=== PATIENT | female | born 1955 | race Caucasian/White ===

== ENCOUNTER 2016-10-17 10:23 | Inpatient (IN) ==
[2016-10-17] MEDS ORDERED: SOLU-MEDROL ONE (10:39)
[2016-10-17] MEDS ORDERED: SOLU-MEDROL IV ONE (10:47)
[2016-10-17 10:49] LABS: BLOOD TYPE ARTERIAL; DRAW SITE R BRACHIAL; METHB 1.3 % (0.0-1.5); PCO2(98.6) 39 mmHg (35-45); PO2(98.6) 60 mmHg (60-100); SAMPLE BLOOD; SAO2 95.5 % (95.0-100.0); THB 12.6 g/dL (11.5-17.4); pH(98.6) 7.45 (7.35-7.45)
[2016-10-17] MEDS ORDERED: DUONEB (A & A) INH ONE (10:49)
[2016-10-17 10:56] LABS: ALLEN TEST NO; MODALITY CANNULA
[2016-10-17 10:59] LABS: MANUAL DIFF NEEDED? NO
[2016-10-17 11:05] LABS: BASO% 0.2 % (0.0-0.8); EOS# 0.11 X1000 (0.0-0.7); EOS% 0.6 % (0.0-10.0); HEMATOCRIT 38.5 % (37.0-47.0); HEMOGLOBIN 13.3 g/dL (12.0-16.0); IMM GRAN# 0.07 X1000 (0.0-0.04); IMM GRAN% 0.4 % (0.0-0.5); LYMPH% 11.1 % (20.5-51.1); MCH 30.4 PG (27-31); MCHC 34.5 g/dL (33-37); MCV 87.9 FL (81-99); MONO# 1.25 X1000 (0.11-0.59); MONO% 6.3 % (1.7-9.3); MPV 9.9 FL (7.4-10.4); NEUT% 81.4 % (42.2-75.2); PLT 277 X1000 (130-400); RBC 4.38 XMIL (4.2-5.4)
--- NOTE | 2016-10-17 11:14 | EKG Report ---
Test Performed on : 10/17/2016 10:33:34 AM Test Reason : SOB Blood Pressure : / mmHG Vent. Rate : 113 BPM Atrial Rate : 113 BPM P-R Int : 134 ms QRS Dur : 144 ms QT Int : 370 ms P-R-T Axes : 072 -48 069 degrees QTc Int : 507 ms Sinus tachycardia. with premature atrial complexes. with aberrant conduction. Possible Left atrial enlargement Left axis deviation Left bundle branch block Abnormal ECG When compared with ECG of 01-MAR-2016 16:35, aberrant conduction. is now present QRS axis shifted left T wave inversion no longer evident in Inferior leads Unconfirmed Result
[2016-10-17 11:18] LABS: AGAP 14; ALBUMIN 4.4 g/dL (3.5-5.0); ALKALINE PHOSPHATASE 119 U/L (32-104); BUN 12 mg/dL (8-22); CALCIUM 9.6 mg/dL (8.8-10.2); CHLORIDE 103 mmol/L (98-107); CK PROFILE 80 U/L (24-173); COSMO 282; GOT 15 U/L (10-30); GPT 9 U/L (10-36); MAGNESIUM 1.7 mg/dL (1.5-2.7); POTASSIUM 3.7 mmol/L (3.5-5.1); SODIUM 141 mmol/L (136-145); TCO2 24 mmol/L (25-35); TOTAL PROTEIN 7.2 g/dL (6.3-8.3)
[2016-10-17 11:34] LABS: INR 0.97 (0.86-1.15); PROTIME 13.2 Seconds (12.1-15.5)
[2016-10-17 11:35] LABS: PTT PL 33.5 Seconds (22.6-43.9)
--- NOTE | 2016-10-17 11:47 | Diag Imaging Result Doc PS360 ---
EXAM: CHEST-2 VIEWS INDICATION: CP TECHNIQUE: 2 views COMPARISON: 03/01/2016 FINDINGS: There is a new opacity in the right lower lung zone that probably represents an infiltrate. However, it is vaguely nodular. At least a follow-up chest radiograph or CT is recommended. The lungs are grossly clear, otherwise. There is no discrete pleural fluid collection or pneumothorax. The cardiomediastinal silhouette and central vasculature are grossly unremarkable. IMPRESSION: New vaguely nodular opacity in the right lower lung zone as described. Please see above discussion. Electronically signed by Semaj Ramos 10/17/2016 11:45 AM
[2016-10-17] MEDS ORDERED: NS 1,000 ML IV ONE (11:58)
--- NOTE | 2016-10-17 12:04 | ED EKG INTERP ---
This chart was entered by Patricia Dunbar Scribe, acting as scribe for Trung Nunez MD. EKG Interpretation - EKG Time of EKG reading by physician:: 10:45 EKG Read and Signed by:: Trung Nunez EKG Interpretation (*Must complete 3 of following elements*): Abnormal Rate: 113 Rhythm: sinus tachycardia with premature atrial complexes w/ aberrant conduction [place]: left (left axis deviation) QRS: LBB (left bundle branch block) Prior EKG Comparison: unchanged from prior Comments: abnormal ECG This chart was documented by the indicated scribe, (Patricia Dunbar Scribe) and accurately reflects the services I performed and decisions made by me, Trung Nunez MD, as attested by the provider's signature.
[2016-10-17] MEDS: PROZAC PO SCH ×2 (12:15→12:53)
[2016-10-17] MEDS ORDERED: PREDNISONE PO SCH (12:15)
[2016-10-17] MEDS: LOVENOX SUBQ SCH (12:15)
[2016-10-17] MEDS: ALTACE PO SCH ×2 (12:15→12:54)
[2016-10-17] MEDS: ROCEPHIN 1 GM/NS 1 GM/50 ML IVPB IV SCH (12:38)
[2016-10-17] MEDS: AVAPRO PO SCH ×2 (12:45→12:54)
[2016-10-17] MEDS: LEVAQUIN 750 MG/D5W 750 MG/150 ML IVPB IV SCH (13:10)
[2016-10-17] MEDS: DUONEB (A & A) INH SCH ×3 (17:08→22:57)
[2016-10-17] MEDS: ZOCOR PO SCH (20:51)
[2016-10-17] MEDS: COREG PO SCH (20:51)
[2016-10-18] MEDS: DUONEB (A & A) INH SCH ×6 (04:06→23:27)
[2016-10-18] MEDS: ALTACE PO SCH (09:05)
[2016-10-18] MEDS: AVAPRO PO SCH (09:06)
[2016-10-18] MEDS: PROZAC PO SCH (09:06)
[2016-10-18] MEDS: COREG PO SCH ×2 (09:06→21:06)
[2016-10-18] MEDS: ROCEPHIN 1 GM/NS 1 GM/50 ML IVPB IV SCH (12:25)
[2016-10-18] MEDS: LOVENOX SUBQ SCH (12:25)
[2016-10-18] MEDS: LEVAQUIN 750 MG/D5W 750 MG/150 ML IVPB IV SCH (13:37)
--- NOTE | 2016-10-18 19:48 | Diag Imaging Result Doc PS360 ---
EXAM: CHEST-2 VIEWS INDICATION: PNA/COPD TECHNIQUE: 2 views COMPARISON: 10/17/2016 FINDINGS: The vaguely nodular infiltrate at the right lower lung zone appears slightly less prominent than the previous study. No new consolidation is identified. Cardiac silhouette is stable. IMPRESSION: Improvement in mild focal consolidation on the right. Electronically signed by Semaj Ramos 10/18/2016 7:45 PM
[2016-10-18] MEDS: ZOCOR PO SCH (21:06)
[2016-10-19] MEDS: DUONEB (A & A) INH SCH ×4 (03:15→15:48)
[2016-10-19 05:46] LABS: MANUAL DIFF NEEDED? NO
[2016-10-19 05:57] LABS: BASO% 0.1 % (0.0-0.8); HEMATOCRIT 33.2 % (37.0-47.0); HEMOGLOBIN 11.1 g/dL (12.0-16.0); IMM GRAN# 0.04 X1000 (0.0-0.04); IMM GRAN% 0.3 % (0.0-0.5); LYMPH# 3.13 X1000 (1.2-3.4); LYMPH% 26.3 % (20.5-51.1); MCH 30.2 PG (27-31); MCHC 33.4 g/dL (33-37); MCV 90.5 FL (81-99); MONO# 0.76 X1000 (0.11-0.59); MONO% 6.4 % (1.7-9.3); MPV 9.9 FL (7.4-10.4); NEUT% 66.9 % (42.2-75.2); PLT 225 X1000 (130-400); RBC 3.67 XMIL (4.2-5.4)
[2016-10-19 05:58] VITALS: BP 160/68
[2016-10-19] MEDS: ALTACE PO SCH (08:29)
[2016-10-19] MEDS: PROZAC PO SCH (08:29)
[2016-10-19] MEDS: COREG PO SCH (08:29)
[2016-10-19] MEDS: AVAPRO PO SCH (08:30)
[2016-10-19] MEDS: ROCEPHIN 1 GM/NS 1 GM/50 ML IVPB IV SCH (12:52)
[2016-10-19] MEDS: LOVENOX SUBQ SCH (12:52)
[2016-10-19] MEDS: LEVAQUIN 750 MG/D5W 750 MG/150 ML IVPB IV SCH (13:31)
--- NOTE | 2016-11-04 23:25 | PROVIDER DOCUMENTATION ---
This chart was entered by Patricia Dunbar Scribe, acting as scribe for Trung Nunez MD. HPI-Respiratory General - General Chief Complaint: Shortness of Breath Stated Complaint: SOB/COLD SX Time Seen by Provider: 10/17/16 10:43 Source: patient Allergies/Adverse Reactions: Patient Allergies Allergy/AdvReac Type Severity Reaction Status Date / Time erythromycin base Allergy Intermediate RASH Verified 10/17/16 10:29 Corticosteroids AdvReac Intermediate resp Verified 10/17/16 10:29 (Glucocorticoids) distress promethazine HCl * AdvReac Mild VOMITING Verified 10/17/16 10:29 [From Phenergan] Home Medications: Home Medication List Medication Instructions Recorded Confirmed Last Taken Type Albuterol Sulfate [Proair Hfa] 8.5 gm IH 4XDAY PRN PRN 05/15/13 10/17/16 History Ramipril 10 mg PO DAILY 05/15/13 10/17/16 12/29/14 History Simvastatin 40 mg PO HS 05/15/13 10/17/16 12/29/14 History Sucralfate 1 gm PO 4XDAY 05/15/13 10/17/16 12/29/14 History Fluoxetine [Prozac] 20 mg PO DAILY 07/31/14 10/17/16 12/29/14 History Albuterol 2.5MG/Ipratrop 0.5MG 3 ml INH RTQ4H #60 neb 08/06/14 10/17/16 Rx [Duoneb (A & A)] Carvedilol [Coreg] 25 mg PO BID #60 tablet 08/06/14 10/17/16 12/29/14 Rx Prednisone 10 mg PO DAILY #20 tablet 08/06/14 10/17/16 12/29/14 Rx Albuterol Sulfate Inhaler 2 puff INH Q6H PRN PRN #1 inhaler 01/06/16 10/17/16 Unknown Rx [Ventolin Hfa] Inhaler, Assist Devices [Space 1 each MC DIRECTED #1 spacer 01/06/16 Unknown Rx Chamber Plus] Guaifenesin/Codeine [Robitussin-AC] 10 ml PO Q4H PRN PRN #4 oz 03/01/16 Unknown Rx Levofloxacin [Levaquin] 750 mg PO DAILY #3 tablet 10/19/16 Unknown Rx - History of Present Illness-Resp Nature of Presenting Problem: 61 year old female presents to the ER with complaint of SOB since last pm. Pt is currently on home oxygen. Pt is currently on antibiotics. Onset/Duration: reports: last night Timing: reports: still present Associated Symptoms: reports: shortness of breath Review of Systems - Adult - REVIEW OF SYSTEMS - ADULT Constitutional: denies: chills, fever Eyes: reports: no symptoms reported Ears, Nose, Mouth & Throat: reports: no symptoms reported Cardiovascular: reports: no symptoms reported Respiratory: reports: see HPI, shortness of breath Gastrointestinal: reports: no symptoms reported Genitourinary: reports: no symptoms reported Musculoskeletal: reports: no symptoms reported Integumentary: reports: no symptoms reported Neurological: reports: no symptoms reported Psychiatric: reports: no symptoms reported Endocrine: reports: no symptoms reported Hematologic/Lymphatic: reports: no symptoms reported Allergic/Immunologic: reports: no symptoms reported All Other Systems: Reviewed and Negative Past History - Adult - PAST MEDICAL HISTORY-ADULT Review of Records: reports: Nursing Assessment Review, Medications Reviewed Cardiovascular: reports: CHF, HTN, hyperlipidemia, [place] Respiratory: reports: COPD, pneumonia, sleep apnea Gastrointestinal: reports: cholelithiasis Musculoskeletal: reports: arthritis, other (gout) Neurological: reports: denies history Psychiatric: reports: denies history Endocrine/Immune: reports: denies history Other Conditions: reports: denies history - PRIOR SURGERIES/PROCEDURES Surgical/Procedure History: reports: appendectomy, BTL, - IMMUNIZATION STATUS Childhood Immunizations: See Nurse Assessment Flu Vaccine: See Nurse Assessment - FAMILY HISTORY Family History: reviewed, not pertinent Physical Exam-General - CONSTITUTIONAL General Appearance: alert, no apparent distress - EYES Eyes: PERRL/EOMI, pink conjunctivae - HEAD, EARS, NOSE, MOUTH & THROAT HENMT: normocephalic/atraumatic, moist mucous membranes - NECK Neck: non-tender, full range of motion - RESPIRATORY Respiratory: decreased breath sounds, crackles - CARDIOVASCULAR Cardiovascular: normal peripheral pulses, regular rate, rhythm - MUSCULOSKELETAL Back Exam: no CVA tenderness, no vertebral tenderness Extremity: non-tender, normal inspection - SKIN Integumentary: normal color, warm/dry - NEUROLOGIC Neurologic: grossly normal, no motor/sensory deficits - PSYCHIATRIC Psych/Mental Status: normal mood/affect, normal thought content, normal thought process, oriented x 3 Progress - PLAN OF CARE/RESULTS Progress/Plan/Lab Results: Orders Category Date Time Status Admit - [facility] Routine AdmDCTranf 10/17/16 11:58 Ordered Admit - [facility] Routine AdmDCTranf 10/17/16 12:09 Ordered Activity - Up Ad Catherine ORDERED Care 10/17/16 11:58 Active Activity - Up with Assistance ORDERED Care 10/17/16 12:09 Completed Cardiac Monitoring DIRECTED Care 10/17/16 10:39 Completed Elevate Head of Bed DIRECTED Care 10/17/16 12:09 Active Encourage Fluids DIRECTED Care 10/17/16 12:09 Active Intake and Output-Strict Q 8-HR ASSESS Care 10/17/16 12:09 Completed Nursing- Assist w/ IS as order ORDERED Care 10/17/16 12:10 Active Saline Loc NOW Care 10/17/16 10:39 Completed Turn, Cough and Deep Breathe Q2HR Care 10/17/16 12:09 Active Vital Signs Order Q 4-HR ASSESS Care 10/17/16 11:58 Completed Vital Signs Order Q 8-HR ASSESS Care 10/17/16 12:09 Active Z-Document. for Tele Applied ORDERED Care 10/17/16 12:00 Completed Heart Healthy Diet Diet 10/17/16 12:01 Completed Heart Healthy Diet Diet 10/17/16 12:11 Completed CHEST-2 VIEWS [RAD] Stat Exams 10/17/16 10:39 Completed ABG [RESP] Routine Lab 10/17/16 10:20 Completed BLOOD CULTURE [BLDCUL] Stat Lab 10/17/16 12:30 Completed CBC WITH ELECTRONIC DIFF [HEME] Stat Lab 10/17/16 10:35 Completed CK PROFILE [SP CHEM] Stat Lab 10/17/16 10:35 Completed COMPREHENSIVE METABOLIC PANEL [CHEM] Stat Lab 10/17/16 10:35 Completed D-DIMER PL [COAG] Stat Lab 10/17/16 10:35 Completed MAGNESIUM [CHEM] Stat Lab 10/17/16 10:35 Completed PRO B-NATRIURETIC PEPTIDE Stat Lab 10/17/16 10:35 Completed PROTIME WITH INR PL [COAG] Stat Lab 10/17/16 10:[address] [COAG] Stat Lab 10/17/16 10:35 Completed SPUTUM CULTURE WITH GRAM STAIN [RM] Routine Lab 10/17/16 16:25 Completed TROPONIN T Stat Lab 10/17/16 10:35 Completed 0.9% Sodium Chloride Inj [Ns] 1,000 ml Med 10/17/16 11:58 Discontinued IV 50 mls/hr Albuterol 2.5MG/Ipratrop 0.5MG [Duoneb (A & A)] Med 10/17/16 10:49 Discontinued 3 ml INH NOW ONE Albuterol 2.5MG/Ipratrop 0.5MG [Duoneb (A & A)] Med 10/17/16 15:30 Discontinued 3 ml INH RTQ4H Carvedilol [Coreg] Med 10/17/16 21:00 Discontinued 25 mg PO BID CefTRIAXONE 1 GM/NS [Rocephin 1 gm/Ns] Med 10/17/16 12:15 Discontinued 1 gm in 50 ml IV Q24H Enoxaparin [Lovenox] Med 10/17/16 12:15 Discontinued 30 mg SUBQ Q24H Fluoxetine [Prozac] Med 10/17/16 12:15 Discontinued 20 mg PO QAM Irbesartan [Avapro] Med 10/17/16 12:45 Discontinued 300 mg PO QAM Levofloxacin 750 mg/D5w [Levaquin 750 mg/D5w] Med 10/17/16 13:00 Discontinued 750 mg in 150 ml IV Q24H Methylprednisolone Sod Succ [Solu-Medrol] Med 10/17/16 10:39 Discontinued 125 mg .ROUTE .STK-MED ONE Methylprednisolone Sod Succ [Solu-Medrol] Med 10/17/16 10:47 Discontinued 125 mg IV NOW ONE RAMIpril [Altace] Med 10/17/16 12:15 Discontinued 10 mg PO QAM SIMVAstatin [Zocor] Med 10/17/16 21:00 Discontinued 40 mg PO QHS Aerosol Treatments Routine Ot 10/17/16 12:01 Completed Aerosol Treatments Stat Oth 10/17/16 10:50 Completed Aerosol Treatments Stat Ot 10/17/16 12:01 Completed Incentive Spirometer Routine Ot 10/17/16 12:09 Completed Oxygen Device Routine Ot 10/17/16 12:00 Completed Oxygen Device Routine Ot 10/17/16 12:09 Completed Pulse Oximetry Routine Ot 10/17/16 12:09 Completed EKG [EKG] Stat Ther 10/17/16 10:39 Draft Transfer/Admit Order [TRANSFER] Routine Transfer 10/17/16 11:58 Completed Result Diagrams: 10/19/16 05:25 10/17/16 10:35 - XRAY 1 XRAY Study: Chest Impression: Abnormal XRAY Interpretation: COPD/pnemonia Per Dr. Nunez Departure - Departure Date of Disposition Decision: 10/17/16 Time of Disposition Decision: 12:15 DIAGNOSIS: COPD exacerbation Pneumonia Qualifiers: Pneumonia type: due to unspecified organism Laterality: right Lung location: lower lobe of lung Qualified Code(s): J18.1 - Lobar pneumonia, unspecified organism Disposition: ADMITTED INPATIENT 09 Certified Medical Emergency: Emergent Condition: Stable - Critical Care Note This patient required my direct & personal management of CC.: No Attestation - Physician/ PAM Attestation The physician spent face to face time with patient:: Yes Advanced Practice Provider documentation review:: Supervising physician onsite and consulted in the evaluation and care of this patient. The physician did have a face to face encounter with the patient. This chart was documented by the indicated scribe, (Patricia Dunbar, Scribliza) and accurately reflects the services I performed and decisions made by me, Trung Nunez MD, as attested by the provider's signature.
--- NOTE | 2016-11-06 12:09 | HISTORY AND PHYSICAL ---
HISTORY OF PRESENT ILLNESS: The patient is an office patient of [employer] that I am following primarily for hypertension, dyslipidemia, and COPD with history of continued smoking. This lady presented to the emergency department on the day of admission complaining of shortness of breath since the previous evening. She takes oxygen at home. Has a nebulizer at home and is currently taking antibiotics. These symptoms began the previous evening and just primarily shortness of breath, some cough, more work of breathing. In the ER, she was evaluated. Patient was on Levaquin and she had the following data. When she got there, she was given several treatments of albuterol after her preliminary evaluation. Treated with on 1 g of ceftriaxone, 30 mg of Lovenox. Her chest x-ray was COPD with possible pneumonic infiltrate in the right lung. She had a normal chem-7. Her CO2 was 24. Her CBC showed hematocrit was 33.2, white count was 11,100. PATIENT HISTORY: She has had a previous history of hypertension, dyslipidemia, ischemic heart disease with an [place], CHF, COPD, sleep apnea, pneumonia, cholelithiasis. She has had gouty arthritis. She has been intubated on several occasions because of exacerbations of her lungs. ALLERGIC: To erythromycin. Thinks she gets in respiratory distress when she takes corticosteroids, but I think it is the other way around. She needs to take corticosteroids when she gets in respiratory distress, and she vomits when she gets promethazine, and again she could be vomiting in spite of the promethazine. MEDICATIONS: Albuterol 4 times a day, ramipril 10 daily, simvastatin 40 daily, 1 g sucralfate 4 times a day, Prozac 20 daily, carvedilol 25 p.o. b.i.d., prednisone 10 daily, 2 puffs albuterol rescue inhaler p.r.n. REVIEW OF SYSTEMS: Generally: She denies chills, fever or significant weight gain or weight loss. Eyes: No history of conjunctivitis, change in vision or visual lorenzo. Ears Nose and Throat: No rhinitis, sinusitis or otitis. Cardiovascular: No chest pain, palpitations. She has some trace edema. No PND or orthopnea. No claudication. Respiratory: Chronic shortness of breath. Persistently smokes. Short of breath with minimal activity. Gastrointestinal: No nausea, vomiting, diarrhea, or constipation. Genitourinary: No polyuria, hematuria, dysuria. Musculoskeletal: No chest wall problems or skeletal muscle problem. Skin: Clear. Neurologic: No focal deficits. No TIA symptoms. Psychiatric: Negative for anxiety or depression, hallucinations or schizophrenia. Endocrine: No polyuria, polydipsia, or polyphagia. Hematological: No bruise. No bleeding. Allergic: No lymphadenopathy at the time of admission. PHYSICAL EXAMINATION: HEENT: Head was normocephalic. Eyes were PERRLA. EOMs intact. SC clear. Nares patent. NECK: Supple. Bounding carotids without thyromegaly or jugular venous distention. CHEST: Increased AP diameter, diminished breath sounds. CARDIOVASCULAR: Regular rhythm and rate. S1-S2 were normal. ABDOMEN: Somewhat protuberant. No hepatosplenomegaly. No CVA tenderness. EXTREMITIES: Negative for clubbing, cyanosis, or edema. Trace edema. SKIN: Generally clear. ADMITTING DIAGNOSES: 1. Chronic obstructive pulmonary disease. 2. History of ischemic heart disease. 3. Hypertension. 4. Dyslipidemia. 5. Acute exacerbation of chronic obstructive pulmonary disease versus pneumonia. She was cultured and hospitalized for treatment and further evaluation. cc: Trung Nunez MD
== END 2016-10-19 18:59 | disposition home or self-care (01) ==
LOC: P.ED 10:23 → P.MEDSURG 10:23 → OBSVTOIN 12:59
PROVIDERS: ADMIT Internal Medicine; ATTEND Internal Medicine

== ENCOUNTER 2019-05-20 16:29 | Inpatient (IN) ==
[2019-05-20] MEDS ORDERED: SOLU-MEDROL IV ONE (17:12)
--- NOTE | 2019-05-20 18:09 | Diag Imaging Result Doc PS360 ---
EXAM: CHEST-PORTABLE HISTORY: cough TECHNIQUE: Single view COMPARISON: 12/01/2018 FINDINGS: The lungs are well expanded. The heart is mildly enlarged. The vessels are not distended. No consolidation. No effusion identified. IMPRESSION: No pneumonia. Electronically signed by Elian Pepper 05/20/2019 6:07 PM
[2019-05-20 18:10] LABS: CHLORIDE 101 mmol/L (98-107); POTASSIUM 3.2 mmol/L (3.5-5.1); SODIUM 145 mmol/L (136-145)
[2019-05-20 18:15] LABS: AGAP 13; COSMO 288
[2019-05-20 18:16] LABS: ALKALINE PHOSPHATASE 95 U/L (32-104); BUN 10 mg/dL (8-22); CREATININE 0.6 mg/dL (0.5-0.9); ESTIMATED GFR > 60; GLUCOSE 99 mg/dL (70-104); GOT 11 U/L (10-30); GPT 7 U/L (10-36); TCO2 30 mmol/L (25-35); TOTAL PROTEIN 6.2 g/dL (6.3-8.3)
[2019-05-20 18:20] LABS: BASO# 0.02 X1000 (0.0-0.2); BASO% 0.2 % (0.0-0.8); EOS% 1.1 % (0.0-10.0); HEMATOCRIT 33.6 % (37.0-47.0); HEMOGLOBIN 10.6 g/dL (12.0-16.0); IMM GRAN# 0.03 X1000 (0.0-0.04); IMM GRAN% 0.3 % (0.0-0.5); LYMPH# 2.42 X1000 (1.2-3.4); LYMPH% 25.7 % (20.5-51.1); MCH 28.6 PG (27-31); MCHC 31.5 g/dL (33-37); MCV 90.8 FL (81-99); MONO# 1.09 X1000 (0.11-0.59); MONO% 11.6 % (1.7-9.3); MPV 10.6 FL (7.4-10.4); NEUT# 5.75 X1000 (1.4-6.5); NEUT% 61.1 % (42.2-75.2); PLT 253 X1000 (130-400); RDW 13.8 % (11.5-14.5); WBC 9.41 X1000 (4.8-10.8)
[2019-05-20] MEDS ORDERED: DUONEB (A & A) INH ONE (18:29)
[2019-05-20] MEDS ORDERED: PULMICORT INH ONE (18:30)
[2019-05-20] MEDS ORDERED: ROCEPHIN 1 GM in NS 50 ML IV ONE (18:32)
--- NOTE | 2019-05-20 19:02 | PROVIDER DOCUMENTATION ---
This chart was entered by Zainab Martino Scribe, acting as scribe for Emmy Villanueva MD. HPI-Respiratory General - General Source: patient - History of Present Illness-Resp Quality of Pain: reports: tightness Severity in ED: reports: mild Onset/Duration: reports: gradual, 24 hours ago Timing: reports: still present, constant, getting worse Context: denies: recent foreign travel Current Respiratory Medication Therapy: Initiated A/A nebulizer, Initiated steroid inhaler Modifying Factors: improves with: oxygen. worse with: exertion Associated Symptoms: reports: chest pain/soreness, hurts to breathe, shortness of breath. denies: fever/chills Similar Symptoms Previously?: Yes Recently seen or treated by another doctor?: Yes (Wednesday at clinic) <Emmy Villanueva - Last Filed: 05/20/19 19:01> <Shadi Gamez - Last Filed: 05/20/19 19:30> - General Chief Complaint: N/V/D Stated Complaint: LIGHT HEADED, HEAVINESS IN CHEST Time Seen by Provider: 05/20/19 16:47 Allergies/Adverse Reactions: Patient Allergies Allergy/AdvReac Type Severity Reaction Status Date / Time erythromycin base Allergy Intermediate RASH Verified 05/20/19 17:03 Corticosteroids AdvReac Intermediate RASH Verified 05/20/19 17:38 (Glucocorticoids) promethazine HCl * AdvReac Mild VOMITING Verified 05/20/19 17:03 [From Phenergan] Home Medications: Home Medication List Medication Instructions Recorded Confirmed Last Taken Type Fluoxetine [Prozac] 20 mg PO DAILY 07/31/14 05/20/19 12/29/14 History Carvedilol [Coreg] 25 mg PO BID #60 tablet 08/06/14 05/20/19 12/29/14 Rx Albuterol 2.5MG/Ipratrop 0.5MG 1 inh PO Q4-6H PRN PRN 05/11/17 05/20/19 Unknown History [Duoneb (A & A)] Cyclobenzaprine HCl 1 tab PO TID PRN 05/11/17 12/01/18 Unknown History Montelukast [Singulair] 10 mg PO DAILY 05/11/17 05/20/19 Unknown History Sucralfate [Carafate] 1 gm PO 4XDAY 11/20/17 05/20/19 Unknown History Sacubitril/Valsartan [Entresto 24 40 mg PO BID 07/31/18 05/20/19 Unknown History mg-26 mg Tablet] Furosemide [Lasix] 20 mg PO DAILY PRN PRN #15 tab 08/01/18 05/20/19 Unknown Rx Simvastatin [Zocor] 1 tab PO HS 12/01/18 05/20/19 Unknown History Aspirin [Aspir-Low] 81 mg PO DAILY 05/20/19 05/20/19 Unknown History Budesonide/Formoterol Inhaler 1 puff INH BID 05/20/19 05/20/19 Unknown History [Symbicort 160/4.5 Microgm Inhaler] Calcium Carb/Magnesium Oxid/D3 1 tab PO DAILY 05/20/19 05/20/19 Unknown History [Calcium Magnesium + D Tablet] Cefdinir 1 cap PO Q12HR 05/20/19 05/20/19 Unknown History Cetirizine HCl [All Day Allergy] 10 mg PO DAILY 05/20/19 05/20/19 Unknown History - History of Present Illness-Resp Nature of Presenting Problem: Pt is a 64 yowf with c/o SOB, n/v/d and chest pain. Pt states that she was seen in clinic and had a dx of URI on Wednesday. Pt states that the chest pain feels like a tightness that is getting worse as the day goes on. Pt is alert, pale, and nontoxic in appearance.PT c/o n/v/d that started x2 days ago. She has had cold symptoms x1 month and was given Cefdinir for an URI at the walk-in clinic about x3 days ago. Hx of CHF and COPD with o2 dependence. -Fever, -CP, +SOB. (Emmy Villanueva) Review of Systems - Adult - REVIEW OF SYSTEMS - ADULT Constitutional: denies: chills, fever Eyes: reports: no symptoms reported Ears, Nose, Mouth & Throat: reports: no symptoms reported Cardiovascular: reports: see HPI, chest pain. denies: syncope Respiratory: reports: see HPI, shortness of breath Gastrointestinal: reports: see HPI, diarrhea, nausea, vomiting. denies: abdominal pain Genitourinary: reports: no symptoms reported Musculoskeletal: reports: no symptoms reported Integumentary: reports: no symptoms reported Neurological: denies: dizziness/vertigo, headache/migraines Psychiatric: reports: no symptoms reported Endocrine: reports: no symptoms reported Hematologic/Lymphatic: reports: no symptoms reported Allergic/Immunologic: reports: no symptoms reported All Other Systems: Reviewed and Negative <Emmy Villanueva - Last Filed: 05/20/19 19:01> Past History - Adult - PAST MEDICAL HISTORY-ADULT Review of Records: reports: Old Records Reviewed, Nursing Assessment Review, Medications Reviewed, Social history reviewed & non-contributory. Major Childhood Illnesses: reports: denies history Cardiovascular: reports: CHF, HTN, hyperlipidemia, NV Respiratory: reports: asthma, COPD, pneumonia, sleep apnea Gastrointestinal: reports: cholelithiasis Obstetrical/Gynecological: reports: denies history Genitourinary: reports: denies history Musculoskeletal: reports: arthritis, other (gout) Neurological: reports: denies history Psychiatric: reports: denies history Endocrine/Immune: reports: denies history Other Conditions: reports: denies history - PRIOR SURGERIES/PROCEDURES Surgical/Procedure History: reports: appendectomy, BTL, - IMMUNIZATION STATUS Childhood Immunizations: See Nurse Assessment Flu Vaccine: See Nurse Assessment - FAMILY HISTORY Family History: reviewed, not pertinent - SOCIAL HISTORY Smoking: cigarettes, less than 1 pack/day Provider spent 3-5 mins advising pt. on dangers of tobacco.: Discussed manners to quit use, and f/u contacts for add'l counseling. Substance Use: denies Living Situation: alone <Emmy Villanueva - Last Filed: 05/20/19 19:01> Physical Exam-General - PHYSICAL EXAM-ADULT Initial Vital Signs Reviewed: Yes (Temp 97.4; HR 108) - CONSTITUTIONAL General Appearance: alert, no apparent distress, obese - EYES Eyes: PERRL/EOMI, pink conjunctivae - HEAD, EARS, NOSE, MOUTH & THROAT HENMT: normocephalic/atraumatic, moist mucous membranes, normal ENT inspection - NECK Neck: non-tender, full range of motion, supple, normal inspection - RESPIRATORY Respiratory: chest non-tender, other (distant breathe sounds and not good air movement) - CARDIOVASCULAR Cardiovascular: normal peripheral pulses, tachycardia - GASTROINTESTINAL (ABDOMEN) Abdominal Exam: non tender, soft - LYMPHATIC Lymphatic: no adenopathy - MUSCULOSKELETAL Back Exam: normal inspection, no CVA tenderness, no vertebral tenderness Extremity: normal range of motion, non-tender, normal gait, normal inspection, no pedal edema, no calf tenderness, normal capillary refill - SKIN Integumentary: normal color, normal turgor, warm/dry - NEUROLOGIC Neurologic: grossly normal - PSYCHIATRIC Psych/Mental Status: normal mood/affect, normal thought content, normal thought process <Emmy Villanueva - Last Filed: 05/20/19 19:01> Progress - PLAN OF CARE/RESULTS Result Diagrams: 05/20/19 17:20 05/20/19 17:20 - REASSESSMENT Reassessment #1 Time Reassessed: 18:33 Status: improving (patient refused admission, stated that she wanted to go home, symptoms were better) - EKG 1 Time of EKG reading by physician:: 17:10 EKG Read and Signed by:: Emmy Villanueva EKG Interpretation (*Must complete 3 of following elements*): Abnormal Rate: 92 Rhythm: Sinus rhythm with frequent premature ventricular complexes QRS: PVC's Comments: Possible left atrial enlargement; Left bundle branch block - XRAY 1 XRAY Study: Chest Impression: See EMR Report - CHANGE OF SHIFT REPORT (ED Provider) 1 Report Given and Care Transferred to:: Dr Gamez Time of Transfer: 19:00 Items Pending: Labs (second troponin for disposition) <Emmy Villanueva - Last Filed: 05/20/19 19:01> - PLAN OF CARE/RESULTS Result Diagrams: 05/20/19 17:20 05/20/19 17:20 - REASSESSMENT Reassessment #2 Status: unchanged Reassessment Comment: continues to be SOB,receiving updraft at this time,orthopnea <Shadi Gamez - Last Filed: 05/20/19 19:30> - PLAN OF CARE/RESULTS Progress/Plan/Lab Results: Vital Signs - 8 hr 05/20/19 16:33 05/20/19 17:35 05/20/19 18:07 Temperature 97.4 F L 99.2 F Pulse Rate 108 H 96 H 90 Respiratory Rate 20 29 H 20 Blood Pressure 147/63 140/97 144/77 O2 Sat by Pulse Oximetry 96 96 96 05/20/19 19:16 Temperature Pulse Rate 103 H Respiratory Rate 28 H Blood Pressure O2 Sat by Pulse Oximetry 93 L Laboratory Results - last 24 hr 05/20/19 05/20/19 05/20/19 17:20 17:20 17:20 WBC 9.41 RBC 3.70 L Hgb 10.6 L Hct 33.6 L MCV 90.8 MCH 28.6 MCHC 31.5 L RDW Std Deviation 13.8 Plt Count 253 MPV 10.6 H Immature Gran % (Auto) 0.3 Neut % (Auto) 61.1 Lymph % (Auto) 25.7 [place] % (Auto) 11.6 H Eos % (Auto) 1.1 Baso % (Auto) 0.2 Immature Gran # (Auto) 0.03 Neut # (Auto) 5.75 Lymph # (Auto) 2.42 [place] # (Auto) 1.09 H Eos # (Auto) 0.10 Baso # (Auto) 0.02 Sodium 145 Potassium 3.2 L Chloride 101 Carbon Dioxide 30 Anion Gap 13 BUN 10 Creatinine 0.6 Estimated GFR/1.73 m2 > 60 BUN/Creatinine Ratio 17 Glucose 99 Calculated Osmolality 288 Calcium 9.0 Total Bilirubin 0.20 AST 11 ALT 7 L Alkaline Phosphatase 95 Creatine Kinase 55 Troponin T High Sens [id number]-[id number] Pept Total Protein 6.2 L Albumin 4.0 Globulin 2.0 Albumin/Globulin Ratio 2.0 Plasma Lactate 05/20/19 05/20/19 05/20/19 17:20 17:20 17:20 WBC RBC Hgb Hct MCV MCH MCHC RDW Std Deviation Plt Count MPV Immature Gran % (Auto) Neut % (Auto) Lymph % (Auto) [place] % (Auto) Eos % (Auto) Baso % (Auto) Immature Gran # (Auto) Neut # (Auto) Lymph # (Auto) [place] # (Auto) Eos # (Auto) Baso # (Auto) Sodium Potassium Chloride Carbon Dioxide Anion Gap BUN Creatinine Estimated GFR/1.73 m2 BUN/Creatinine Ratio Glucose Calculated Osmolality Calcium Total Bilirubin AST ALT Alkaline Phosphatase Creatine Kinase Troponin T High Sens 24 H Ism-H-Mfjrjldkfae Pept 1380 H Total Protein Albumin Globulin Albumin/Globulin Ratio Plasma Lactate 0.7 Orders Category Date Time Status Admit - [facility] Routine AdmDCTranf 05/20/19 19:23 Active Activity - Strict Bedrest ORDERED Care 05/20/19 19:23 Active NEWS Score 2-4:Order NEWS Lactate Series NOW Care 05/20/19 17:41 Active Resuscitation Status Routine Care 05/20/19 19:23 Ordered Saline Loc NOW Care 05/20/19 17:12 Active Vital Signs Order Q 4-HR ASSESS Care 05/20/19 19:23 Active Z-Document. for Tele Applied ORDERED Care 05/20/19 19:25 Active NPO Diet 05/20/19 19:27 Active CHEST-PORTABLE [RAD] Stat Exams 05/20/19 17:12 Completed ABG [RESP] Routine Lab 05/20/19 19:22 Ordered BLOOD CULTURE [BLDCUL] Stat Lab 05/20/19 17:29 Ordered BNP [PRO B-NATRIURETIC PEPTIDE] Stat Lab 05/20/19 17:20 Completed CBC WITH DIFF [HEME] Stat Lab 05/20/19 17:20 Completed CK PROFILE [SP CHEM] Stat Lab 05/20/19 17:20 Completed COMPREHENSIVE METABOLIC PANEL [CHEM] Stat Lab 05/20/19 17:20 Completed LACTATE, PLASMA [CHEM] Lab 05/20/19 17:20 Completed TROPONIN T HIGH SENSITIVITY Stat Lab 05/20/19 17:20 Completed TROPONIN T HIGH SENSITIVITY Stat Lab 05/20/19 18:54 Received Albuterol 2.5MG/Ipratrop 0.5MG [Duoneb (A & A)] Med 05/20/19 18:29 Discontinue d 3 ml INH NOW ONE Albuterol 2.5MG/Ipratrop 0.5MG [Duoneb (A & A)] Med 05/20/19 19:30 Ordered 3 ml INH RTQ4H Budesonide [Pulmicort] Med 05/20/19 18:30 Discontinued 0.5 mg INH NOW ONE CefTRIAXONE [Rocephin] 1 gm Med 05/20/19 18:32 Discontinued 0.9% Sodium Chloride Inj [Ns] 50 ml IV NOW Furosemide [Lasix] Med 05/20/19 19:16 Discontinued 40 mg IV NOW ONE Methylprednisolone Sod Succ [Solu-Medrol] Med 05/20/19 17:12 Discontinued 125 mg IV NOW ONE Ondansetron [Zofran] Med 05/20/19 19:23 Ordered 4 mg IV Q4H PRN PRN Aerosol Treatments Routine Oth 05/20/19 18:29 Completed Aerosol Treatments Routine Oth 05/20/19 19:27 Active Aerosol Treatments Stat Oth 05/20/19 18:29 Completed Aerosol Treatments Stat Oth 05/20/19 19:27 Active Oxygen Device Routine Oth 05/20/19 19:27 Active Pulse Oximetry Stat Oth 05/20/19 17:12 Completed Telemetry [OM.EQ] Routine Oth 05/20/19 19:23 Active EKG [EKG] Stat Ther 05/20/19 18:31 Ordered EKG [EKG] Stat Ther 05/20/19 19:10 Ordered Transfer/Admit Order [TRANSFER] Routine Transfer 05/20/19 19:28 Ordered Departure - Departure Date of Disposition Decision: 05/20/19 <Emmy Villanueva - Last Filed: 05/20/19 19:01> - Departure Time of Disposition Decision: 19:30 Certified Medical Emergency: Emergent - Critical Care Note This patient required my direct & personal management of CC.: No <Shadi Gamez - Last Filed: 05/20/19 19:30> - Departure DIAGNOSIS: COPD exacerbation CHF (congestive heart failure) Qualifiers: Heart failure type: unspecified Heart failure chronicity: unspecified Qualified Code(s): I50.9 - Heart failure, unspecified Nausea and vomiting Qualifiers: Vomiting type: unspecified Vomiting Intractability: unspecified Qualified Code(s): R11.2 - Nausea with vomiting, unspecified Disposition: ADMITTED INPATIENT 09 Condition: Stable Referrals and Follow-Ups: None,PCP [Primary Care Provider] - Attestation - Physician/ PAM Attestation Patient care was provided by Advanced Practice Provider:: No The physician spent face to face time with patient:: Yes Advanced Practice Provider documentation review:: Supervising physician onsite and consulted in the evaluation and care of this patient. The physician did have a face to face encounter with the patient. <Emmy Villanueva - Last Filed: 05/20/19 19:01> - Physician/ PAM Attestation Patient care was provided by Advanced Practice Provider:: No The physician spent face to face time with patient:: Yes Advanced Practice Provider documentation review:: Supervising physician onsite and consulted in the evaluation and care of this patient. The physician did have a face to face encounter with the patient. <Shadi Gamez - Last Filed: 05/20/19 19:30> This chart was documented by the indicated scribe, (Zainab Martino, [place]) and accurately reflects the services I performed and decisions made by , Emmy Villanueva MD, as attested by the provider's signature.
[2019-05-20] MEDS ORDERED: LASIX IV ONE ×3 (19:16→22:22)
[2019-05-20] MEDS ORDERED: ZOFRAN IV PRN (19:23)
[2019-05-20 19:42] LABS: BE 7.6 mmoll (-3.0-3.0); BLOOD TYPE ARTERIAL; HCO3-(ACT) 30.7 mmoll (20.0-26.0); O2(CT) 15.3 mL/dL (15.0-23.0); PCO2(98.6) 38 mmHg (35-45); PO2(98.6) 61 mmHg (60-100); SAMPLE BLOOD; SAO2 95.6 % (95.0-100.0); THB 12.1 g/dL (11.5-17.4); pH(98.6) 7.52 (7.35-7.45)
[2019-05-20 19:46] LABS: MODALITY CANNULA; O2HB 89.8 % (95.0-99.0)
[2019-05-20] MEDS ORDERED: DUONEB (A & A) INH PRN (22:13)
[2019-05-20] MEDS ORDERED: LASIX PO PRN (22:13)
[2019-05-20] MEDS: DUONEB (A & A) INH SCH ×2 (23:46→23:47)
[2019-05-21] MEDS: COREG PO SCH ×3 (01:18→22:39)
[2019-05-21] MEDS: ZOCOR PO SCH ×2 (01:19→22:39)
[2019-05-21] MEDS: DUONEB (A & A) INH SCH ×7 (03:33→23:21)
--- NOTE | 2019-05-21 06:55 | EKG Report ---
Test Performed on : 05/20/2019 6:52:11 PM Test Reason : chest pain Blood Pressure : / mmHG Vent. Rate : 096 BPM Atrial Rate : 096 BPM P-R Int : 138 ms QRS Dur : 154 ms QT Int : 434 ms P-R-T Axes : 067 002 088 degrees QTc Int : 548 ms Normal sinus rhythm. Possible Left atrial enlargement Left bundle branch block Abnormal ECG When compared with ECG of 20-MAY-2019 17:07, (Unconfirmed) premature ventricular complexes. are no longer present T wave inversion no longer evident in Inferior leads Unconfirmed Result
[2019-05-21] MEDS ORDERED: NON-FORMULARY BULK MED INH SCH (07:30)
[2019-05-21] MEDS: SYMBICORT 160/4.5 MICROGM INHALER INH SCH ×2 (07:48→20:23)
[2019-05-21] MEDS ORDERED: PROZAC PO SCH (09:00)
[2019-05-21] MEDS: ASPIRIN EC PO SCH (09:47)
[2019-05-21] MEDS: SINGULAIR PO SCH (09:47)
[2019-05-21] MEDS: ENTRESTO 24 MG-26 MG TABLET PO SCH ×2 (09:47→22:39)
[2019-05-21] MEDS: CALTRATE 600 + D PO SCH (09:47)
[2019-05-21] MEDS: ZYRTEC PO SCH (09:47)
--- NOTE | 2019-05-21 10:21 | EKG Report ---
Test Performed on : 05/20/2019 5:07:55 PM Test Reason : chest pain Blood Pressure : / mmHG Vent. Rate : 092 BPM Atrial Rate : 092 BPM P-R Int : 136 ms QRS Dur : 154 ms QT Int : 422 ms P-R-T Axes : 069 054 214 degrees QTc Int : 521 ms Sinus rhythm. with frequent premature ventricular complexes. Possible Left atrial enlargement Left bundle branch block Abnormal ECG When compared with ECG of 31-JUL-2018 09:47, premature ventricular complexes. are now present premature atrial complexes. are no longer present T wave inversion now evident in Inferior leads Unconfirmed Result
[2019-05-21] MEDS: KLOR-CON PO SCH (13:53)
[2019-05-21 14:37] LABS: BE 9.3 mmoll (-3.0-3.0); BLOOD TYPE ARTERIAL; O2(CT) 19.3 mL/dL (15.0-23.0); O2HB 91.1 % (95.0-99.0); PCO2(98.6) 46 mmHg (35-45); PO2(98.6) 63 mmHg (60-100); SAMPLE BLOOD; SAO2 94.1 % (95.0-100.0); THB 15.1 g/dL (11.5-17.4); pH(98.6) 7.48 (7.35-7.45)
[2019-05-21 14:45] LABS: ALLEN TEST NO; MODALITY CANNULA
[2019-05-21 14:53] LABS: AGAP 19; ALBUMIN 4.2 g/dL (3.5-5.0); ALKALINE PHOSPHATASE 97 U/L (32-104); BUN 19 mg/dL (8-22); CHLORIDE 96 mmol/L (98-107); COSMO 297; CREATININE 0.9 mg/dL (0.5-0.9); ESTIMATED GFR > 60; GLUCOSE 212 mg/dL (70-104); GOT 12 U/L (10-30); GPT 8 U/L (10-36); SODIUM 145 mmol/L (136-145); TCO2 30 mmol/L (25-35); TOTAL PROTEIN 6.7 g/dL (6.3-8.3)
[2019-05-22] MEDS: DUONEB (A & A) INH SCH ×5 (02:56→19:52)
[2019-05-22] MEDS: SYMBICORT 160/4.5 MICROGM INHALER INH SCH ×2 (07:52→19:52)
[2019-05-22] MEDS ORDERED: PROZAC PO SCH (09:00)
[2019-05-22] MEDS: COREG PO SCH ×2 (09:12→20:03)
[2019-05-22] MEDS: ENTRESTO 24 MG-26 MG TABLET PO SCH ×2 (09:12→20:03)
[2019-05-22] MEDS: SINGULAIR PO SCH (09:12)
[2019-05-22] MEDS: KLOR-CON PO SCH (09:13)
[2019-05-22] MEDS: ASPIRIN EC PO SCH (09:13)
[2019-05-22] MEDS: ZYRTEC PO SCH (09:13)
[2019-05-22] MEDS: CALTRATE 600 + D PO SCH (09:13)
[2019-05-22 12:43] LABS: BE 10.7 mmoll (-3.0-3.0); BLOOD TYPE ARTERIAL; HCO3-(ACT) 33.1 mmoll (20.0-26.0); METHB 1.2 % (0.0-1.5); PCO2(98.6) 48 mmHg (35-45); PO2(98.6) 53 mmHg (60-100); SAMPLE BLOOD; SAO2 91.1 % (95.0-100.0); THB 12.1 g/dL (11.5-17.4); pH(98.6) 7.48 (7.35-7.45)
[2019-05-22 12:47] LABS: MODALITY ROOM AIR; O2HB 88.1 % (95.0-99.0)
[2019-05-22 14:22] LABS: AGAP 13; ALBUMIN 4.2 g/dL (3.5-5.0); ALKALINE PHOSPHATASE 93 U/L (32-104); BUN 25 mg/dL (8-22); CALCIUM 9.7 mg/dL (8.8-10.2); CHLORIDE 98 mmol/L (98-107); COSMO 299; CREATININE 0.7 mg/dL (0.5-0.9); ESTIMATED GFR > 60; GLUCOSE 133 mg/dL (70-104); GOT 13 U/L (10-30); GPT 8 U/L (10-36); POTASSIUM 3.1 mmol/L (3.5-5.1); SODIUM 147 mmol/L (136-145); TCO2 36 mmol/L (25-35); TOTAL BILIRUBIN < 0.15 mg/dL (0.20-1.00); TOTAL PROTEIN 7.2 g/dL (6.3-8.3)
[2019-05-22 14:25] LABS: BASO# 0.02 X1000 (0.0-0.2); BASO% 0.2 % (0.0-0.8); EOS# 0.03 X1000 (0.0-0.7); EOS% 0.2 % (0.0-10.0); HEMATOCRIT 38.3 % (37.0-47.0); HEMOGLOBIN 11.7 g/dL (12.0-16.0); IMM GRAN# 0.06 X1000 (0.0-0.04); IMM GRAN% 0.5 % (0.0-0.5); LYMPH# 3.27 X1000 (1.2-3.4); LYMPH% 26.3 % (20.5-51.1); MCH 28.3 PG (27-31); MCHC 30.5 g/dL (33-37); MCV 92.5 FL (81-99); MONO# 1.07 X1000 (0.11-0.59); MONO% 8.6 % (1.7-9.3); MPV 10.4 FL (7.4-10.4); NEUT# 7.98 X1000 (1.4-6.5); NEUT% 64.2 % (42.2-75.2); PLT 331 X1000 (130-400); RBC 4.14 XMIL (4.2-5.4); RDW 14.3 % (11.5-14.5); WBC 12.43 X1000 (4.8-10.8)
--- NOTE | 2019-05-22 15:19 | Diag Imaging Result Doc PS360 ---
EXAM: CHEST-2 VIEWS HISTORY: cough TECHNIQUE: PA and Lateral chest x-ray COMPARISON: None. FINDINGS: There is cardiomegaly.. The pulmonary vasculature is not congested. No infiltrate, effusion, or pneumothorax is appreciated. IMPRESSION: Cardiomegaly. Electronically signed by Amina Timmons 05/22/2019 3:17 PM
[2019-05-22] MEDS ORDERED: ROCEPHIN 1 GM in NS 50 ML IV ONE (15:51)
[2019-05-22] MEDS ORDERED: LASIX IV ONE (17:53)
[2019-05-22] MEDS: ZOCOR PO SCH (20:03)
[2019-05-22 20:46] VITALS: BP 133/49
--- NOTE | 2019-05-27 09:00 | HISTORY AND PHYSICAL ---
HISTORY OF PRESENT ILLNESS: A 64-year-old white female regular office patient of [facility] presented to the emergency room on the day of admission complaining of tightness in her chest described as mild lasting 24 hours, it seems to be constant, and the pressure seems to be getting worse. She has longstanding COPD, smoker, and has terrible lung disease. She tried some of her albuterol treatments, inhaled steroids. She has oxygen at home, did not seem to help. Her associated symptoms, it is painful to breath. She denied fever or chills, productive cough. She has had similar episodes. She had been seen a couple of days prior in the clinic. When she arrived, she said she had been having nausea, vomiting, and diarrhea, along with the chest pain. She states that she was in the clinic and had a diagnosis of upper respiratory on Wednesday. The patient states that the chest pain feels like tightness that is worse as the day goes on. The patient is alert, pale, and nontoxic in appearance. The patient is complaining of nausea, vomiting, and diarrhea that started 2 days prior to admission. She has had cold symptoms for a month and was given Cefdinir for URI in the walk-in clinic antibiotic [facility]. She has a history of CHF, history of COPD O2-dependent. She has not had a fever, no chest pains, but just has been short of breath. She was seen in the ER by Dr. Villanueva and was admitted. PAST MEDICAL HISTORY: ALLERGIES: SHE IS ALLERGIC TO PROMETHAZINE AND SHE CLAIMS SHE IS ALLERGIC TO ERYTHROMYCIN AND STEROIDS. CURRENT MEDICINES: She is on Prozac 20, carvedilol 25 b.i.d., DuoNeb q.4 p.r.n., cyclobenzaprine 1 t.i.d. p.r.n., Singulair 10 daily, Carafate one 4 times a day. She also is taking Entresto 24 mg/26, furosemide 20 daily for her heart failure. She takes Lasix 20 daily p.r.n., Zocor every day, aspirin daily. REVIEW OF SYSTEMS: She denies any chills or fever. No significant weight gain or weight loss. No change in her visual acuity, irritative changes in he eyes. Ears, nose and throat: No pharyngitis, otitis, sinusitis. Cardiovascular: She has had this persistent chest pain that has been going for a 24 hour period plus, denies syncope. Respiratory: She is always short of breath, a little more short of breath now. Her work of breathing is harder than it typically is. Gastrointestinal: She denies diarrhea, nausea, or vomiting. Denied abdominal pain. Genitourinary: No symptoms of polyuria, polydipsia, hematuria, dysuria, incontinence. Musculoskeletal: No symptoms report. Skin: No rashes, no lesions. Neurological: No focal neurological deficits. Psychiatric: No history of any neuritic or psychotic issues. Endocrine: No polyuria, or polydipsia. Hematological: No clotting or bleeding disorder. Allergies: No symptoms reported. She has had primarily asthma, COPD, pneumonia, sleep apnea all from her relentless smoking history. Gastrointestinal: She has had gallstones taken out in the past. She has had no significant weight gain or weight loss. No significant fever or chills. Musculoskeletal: She has had a history of gout, some musculoskeletal pains. Neurological: No TIAs, CVAs, seizures. Psychiatric: Negative. Endocrine: No polyuria or polydipsia, heat or cold intolerance. PAST MEDICAL HISTORY: She has had an appendectomy, BTL, and . She is up-to-date with her shots. SOCIAL HISTORY: She smokes less than a pack a day now. PHYSICAL EXAMINATION: VITAL SIGNS: On admission, she had a temperature of 97.4 degrees, pulse was 108, respiratory rate 20, BP 147/63. HEENT: Head was normocephalic. Eyes were PERRL. EOMs intact. SC clear. Fundi benign. Nares patent. Oropharynx negative. NECK: Supple, pounding carotids, without thyromegaly. CHEST: Increased AP diameter, diminished breath sounds, expiratory wheezing, no consolidative findings were appreciated. CARDIOVASCULAR EXAM: Regular rhythm and rate. No murmurs, gallops, clicks, or rubs. ABDOMEN: Soft. No hepatosplenomegaly. No CVA tenderness. EXTREMITIES: Negative for clubbing, cyanosis, or edema. NEUROLOGIC EXAM: Intact. ADMITTING DIAGNOSES: 1. Chest pain. 2. Chronic obstructive pulmonary disease exacerbation. 3. History of heart failure. 4. Ongoing smoker. She was admitted from the ER for observation and treatment. cc: Trung Nunez MD
--- NOTE | 2019-05-27 09:04 | PROGRESS NOTE ---
DATE: 05/21/2019 VITAL SIGNS: Temperature is 98 degrees orally, pulse rate is 101, respiratory rate 16, BP 145/63, 2 L O2 saturation was 94. She had a blood gas done on room air, pH was 7.48, pCO2 was 46, pO2 was 63 on 28% FiO2. Carboxyhemoglobin was 2.2. Clostridium difficile: She had some diarrhea, it was negative. Chemistries: Sodium was 145, potassium was 3, chloride 96, CO2 was 30, BUN 19, creatinine 0.9, BUN/creatinine ratio 21, glucose was 212. LFTs were negative. Lactates were negative. She was still having some issues breathing. She had some issues I think that she does not take her Lasix and she has some heart failure and when she takes Lasix she gets better. She took some Lasix IV and now is breathing better. cc: Trung Nunez MD
--- NOTE | 2019-05-27 09:42 | DISCHARGE SUMMARY ---
ADMISSION DATE: 05/20/2019 DISCHARGE DATE: 05/22/2019 A lady who has end-stage COPD, home O2, also heart failure, and we think some issues with atrial fibrillation. She presented to the ER with shortness of breath after having sought help at a medical clinic and got some Cefobid that did not really seem to help. I think 2 problems are one is, is she in heart failure which she is subject to be or is it an aggravation of COPD, infectious or viral exacerbation. So, she presented to the emergency room and was hospitalized. IMAGING: Her initial chest x-ray showed no significant lesions, no pneumonia, vessels were not distended. We repeated the x-ray on 05/21 and more or less the same. In the interim, we have given her some doses of Lasix and she has had significant improvement in her breathing from Lasix rather than the intensified nebulizer treatments that she had been receiving. Her EKG showed a heart rate of 96, normal sinus rhythm, possible left axis enlargement, left bundle branch block, a followup showed heart rate of 92, sinus rhythm with frequent PVCs, left atrial enlargement, left bundle branch block. Her CBCs: Hematocrit ranged somewhere around and averaged 35, white count was around 11,000. Her blood gases on 05/21: pH was 7.48, pCO2 48, pO2 53, on room air. We recommended her to wear her oxygen and she is to see me in the office in a couple of days. She had some low potassium that we are going supplement. Enzymes have been negative. Clostridium difficile is negative. Blood cultures were negative. We sent her home. I think she had heart failure, chronic COPD, and she had not taken her Lasix as prescribed and I think that is what led to her hospitalization. We discharged her precautionarily on some antibiotics and encouraged her to take her Lasix. cc: Trung Nunez MD
== END 2019-05-22 21:30 | disposition home or self-care (01) | DRG 292 ==
LOC: P.ED 16:29 → P.MEDSURG 16:30
PROVIDERS: ADMIT Internal Medicine; ATTEND Internal Medicine